=== PATIENT | male | born 2000 | race African-American/Black ===

== ENCOUNTER 2022-02-25 12:25 | Outpatient (REF) | payer OTHER, SELFPAY ==
[2022-02-28 13:27] LABS: Chlamydia Result Negative (Negative); GC Result Negative (Negative)
== END 2022-02-25 12:26 | disposition home or self-care (01) ==
LOC: NCHCN 12:25
PROVIDERS: Visit Provider Family Medicine
DX: Z11.3 Encounter for screening for infections with a predominantly sexual mode of transmission (principal)
CPT/HCPCS: 87491; 87591